=== PATIENT | female | born 1980 | race Caucasian/White ===

== ENCOUNTER 2016-10-16 18:37 | Emergency (ER) | payer MEDICARE ==
[2016-10-16] MEDS ORDERED: KETOROLAC 60 MG/2 ML VIAL IM ONE (19:26)
== END 2016-10-16 20:44 | disposition home or self-care (01) ==
LOC: ER 18:37
DX: R51 Headache (principal); Z87.891 Personal history of nicotine dependence
CPT/HCPCS: 96372